=== PATIENT | male | born 1965 | race Caucasian/White ===

== ENCOUNTER 2019-05-25 19:00 | Emergency (ER) | payer BC ==
[2019-05-25 19:23] VITALS: BP 153/75; PULSE 96
[2019-05-25] MEDS ORDERED: Diphtheria,Pertussis(Acell),Tetanus Vaccine 0.5 ML SDV IM ONE (19:39)
--- NOTE | 2019-05-25 19:40 | EDM.PDOC ---
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.Does not rem his las td - Related Data Allergies Allergy/AdvReac Type Severity Reaction Status Date / Time adhesive tape Allergy Rash Verified 05/25/19 19:24 ibuprofen AdvReac high blood Verified 05/25/19 19:24 Home Meds: Home Meds Aspirin [Ecotrin EC] 325 mg PO DAILY #30 tab.ec 03/14/16 [Rx] Past Medical History HEENT History: Reports: Impaired Vision Cardiovascular History: Reports: None Respiratory History: Reports: Asthma Gastrointestinal History: Reports: Diverticulosis Other Gastrointestinal History: PERFORATED SIGMOID DIVERTICULUM Genitourinary History: Reports: None Musculoskeletal History: Reports: Back Pain, Chronic Neurological History: Reports: CVA, Vertigo Psychiatric History: Reports: None Endocrine/Metabolic History: Reports: None Hematologic History: Reports: Other (See Below) Other Hematologic History: HEMOCHROMATOSIS, POLYCYTHEMIA Immunologic History: Reports: None Oncologic (Cancer) History: Reports: None Dermatologic History: Reports: Other (See Below) Other Dermatologic History: HEMOCHROMATOSIS - Infectious Disease History Infectious Disease History: Reports: Chicken Pox, Measles, Mumps - Past Surgical History Head Surgeries/Procedures: Reports: None HEENT Surgical History: Reports: None Cardiovascular Surgical History: Reports: None Respiratory Surgical History: Reports: None GI Surgical History: Reports: None Male Surgical History: Reports: None Endocrine Surgical History: Reports: None Neurological Surgical History: Reports: None Social & Family History - Family History Family Medical History: Noncontributory - Living Situation & Occupation Living situation: Reports: Occupation: Employed ED ROS GENERAL - Review of Systems Review Of Systems: ROS reveals no pertinent complaints other than HPI. ED EXAM, SKIN/RASH Exam: See Below Exam Limited By: No Limitations General Appearance: Alert, No Apparent Distress Skin: Other (3 cm laceration to the pulp fo the finger.) Course - Vital Signs Last Recorded V/S: Last Vital Signs Temp 98 F 05/25/19 19:00 Pulse 96 05/25/19 19:00 Resp 18 05/25/19 19:00 BP 153/75 H 05/25/19 19:00 Pulse Ox 98 05/25/19 19:00 Departure - Departure Time of Disposition: 19:39 Disposition: Home, Self-Care 01 Condition: Good Clinical Impression: Laceration - Discharge Information Referrals: Chuck Donaldson MD [Primary Care Provider] - - Problem List & Annotations (1) Laceration SNOMED Code(s): 027682468 Code(s): [id number] - Status: Acute - Problem List Review Problem List Initiated/Reviewed/Updated: Yes - Assessment/Plan Plan: Wound was clean. I did a simple suture repair incorporating the finger nail, bed. He told the procedure well. Discharge from the os was grasped and remove sutures in 7 days
== END 2019-05-25 20:15 | disposition home or self-care (01) ==
LOC: FB.ED 19:00
DX: S61.212A Laceration without foreign body of right middle finger without damage to nail, initial encounter (principal); W28.XXXA Contact with powered lawn mower, initial encounter; Z23 Encounter for immunization; Z88.8 Allergy status to other drugs, medicaments and biological substances; Z91.048 Other nonmedicinal substance allergy status; Z79.82 Long term (current) use of aspirin
CPT/HCPCS: 11760; 12002; 12013; 90471; 90715; 99282-25